=== PATIENT | male | born 1970 | race Caucasian/White ===

== ENCOUNTER 2018-05-08 10:30 | Inpatient (IN) | payer BC ==
[2018-05-08] MEDS ORDERED: traMADol 50 MG Tab PO SCH (10:45)
[2018-05-08] MEDS: B.Bifidum/B.Longum/L.Acidophilus/L.Rhamnosus (Probiotic) Cap PO SCH (12:02)
[2018-05-08] MEDS: Piperacillin/Tazobactam/Dext 3.375 GM in Premix Bag 1 BAG IV SCH ×2 (12:10→18:14)
[2018-05-08] MEDS: Sodium Chloride 0.9% 250 ML IV SCH (12:10)
[2018-05-08] MEDS ORDERED: traMADol 50 MG Tab PO PRN (12:46)
[2018-05-08 13:12] LABS: ANION GAP 15.1 mmol/L (5-15); CHLORIDE,CL 99 mmol/L (98-115); SODIUM,NA 136 mmol/L (136-145)
[2018-05-08] MEDS: Vancomycin 2 GM in Sodium Chloride 0.9% 500 ML IV SCH (13:33)
[2018-05-08] MEDS: amLODIPine 5 MG Tab PO SCH (21:24)
[2018-05-08] MEDS: Lisinopril 20 MG Tab PO SCH (21:26)
[2018-05-08] MEDS: atorvaSTATin 10 MG Tab PO SCH (21:26)
[2018-05-08] MEDS: Hydrochlorothiazide 12.5 MG Cap PO SCH (21:26)
[2018-05-09] MEDS: Piperacillin/Tazobactam/Dext 3.375 GM in Premix Bag 1 BAG IV SCH ×4 (00:18→18:48)
[2018-05-09] MEDS: Vancomycin 2 GM in Sodium Chloride 0.9% 500 ML IV SCH ×2 (01:19→14:29)
[2018-05-09] MEDS: B.Bifidum/B.Longum/L.Acidophilus/L.Rhamnosus (Probiotic) Cap PO SCH (08:30)
--- NOTE | 2018-05-09 12:15 | PN ---
05/09/2018 PATIENT NAME: CAITLIN DIAS HISTORY OF PRESENT ILLNESS: This 48-year-old gentleman was admitted to the hospital post clinical evaluation due to a left lower leg cellulitis/abscess. He had initially injured the left allen area approximately 2 months ago by banging the leg on a ladder as he was climbing. Initially, the leg became quite reddened and swollen with discomfort. He was evaluated in the clinical setting. The patient was placed on antibiotics. An ultrasound had been obtained and was negative for DVT. He completed therapy as ordered. He then noticed a swollen area on the anterior aspect of the lower leg approximately 3 weeks later. A hematoma was removed by Dr. Kasey Martinez. He did have a [place] drain placed. He was given IM Rocephin along with Bactrim DS twice daily for 10 days. Rocephin was x4 days. The status of the lower extremity did show improvement. As of yesterday, he noted after ambulating, the lower extremity became quite reddened, swollen, and tender. He was noting a pussy type discharge from the wound. As a result, he presented to the clinical setting and was hospitalized. Today, he reports that he has noted less drainage through the night. He feels that the swelling and the redness are showing some improvement with his treatment of IV antibiotics. He denies any significant pain. He did receive pain management medication x1 yesterday and has not required any further medication for the discomfort. REVIEW OF SYSTEMS: HEENT: Negative. RESPIRATORY: The patient denies any cough, congestion, or shortness of breath. CARDIOVASCULAR: No complaints of chest discomfort or palpitations. GI: His appetite has been good without any nausea or vomiting. MUSCULOSKELETAL: Left lower extremity abscess/cellulitis with initial discomfort, drainage, redness, and swelling. SKIN: No complaints of rashes or moles. PHYSICAL EXAMINATION: VITAL SIGNS: Stable, 96/60, 97.8, 53, and 20, O2 saturation is 98%. HEENT: Head is normocephalic, conjunctivae clear, no nasal drainage. RESPIRATORY: Lung sounds are clear to auscultation. CARDIOVASCULAR: Heart rate and rhythm are regular. S1 and S2. ABDOMEN: Soft, nontender, bowel sounds present. EXTREMITIES: Left lower extremity is warm and dry to touch. It is swollen on the left anterior allen area. There is a central open wound approximately 1.5 cm in diameter. There is only a scant amount of drainage present on the dressing and with expression to the wound site. IMPRESSION AND PLAN: Abscess/cellulitis of the left lower extremity. A CBC was obtained noting no elevation in the white count. A Gram stain has been completed and is negative. Wound cultures are pending. The patient will be continued on his vancomycin q.12 hours and his Zosyn q.6 hours. A vancomycin trough will be obtained tomorrow. He does have an order for tramadol 50 mg q.6 hours for pain and discomfort as needed. Remainder of his medications and chronic diagnoses include hypertension, for which he received Norvasc 5 mg daily, hydrochlorothiazide 12.5 mg, and lisinopril 40 mg. He also has a history of hypercholesterolemia and is taking Lipitor 20 mg. Dressing changes will be completed on a daily basis. The patient will continue with his medications as stated and be followed up tomorrow. /[id number]/MODL MTDD
[2018-05-09] MEDS: Sodium Chloride 0.9% 250 ML IV SCH (12:29)
[2018-05-09] MEDS: Lisinopril 20 MG Tab PO SCH (20:45)
[2018-05-09] MEDS: amLODIPine 5 MG Tab PO SCH (20:45)
[2018-05-09] MEDS: atorvaSTATin 10 MG Tab PO SCH (20:45)
[2018-05-09] MEDS: Hydrochlorothiazide 12.5 MG Cap PO SCH (20:45)
[2018-05-10] MEDS: Piperacillin/Tazobactam/Dext 3.375 GM in Premix Bag 1 BAG IV SCH ×5 (00:10→23:56)
[2018-05-10] MEDS: Vancomycin 2 GM in Sodium Chloride 0.9% 500 ML IV SCH ×2 (00:58→17:30)
[2018-05-10] MEDS: B.Bifidum/B.Longum/L.Acidophilus/L.Rhamnosus (Probiotic) Cap PO SCH (08:26)
[2018-05-10] MEDS: Sodium Chloride 0.9% 250 ML IV SCH (12:22)
--- NOTE | 2018-05-10 19:15 | PN ---
05/10/2018 PATIENT NAME: CAITLIN DIAS HISTORY OF PRESENT ILLNESS: This is a 48-year-old male patient who was admitted to the [facility] post clinical evaluation due to left lower leg cellulitis/abscess. Initial injury had occurred approximately 2 months prior to his current abscess site. Currently, he noted that there was redness and discomfort along with swelling on the anterior aspect of the allen. This site was drained and a culture was obtained. No growth of the preliminary culture report to date. He has been receiving IV antibiotics of Zosyn and vancomycin. The patient states today he feels that the discomfort has significantly improved. There is less redness and less swelling. He notes there is minimal drainage at this site. He has not taken any further pain medications. He is eating well and he is resting comfortably. REVIEW OF SYSTEMS: HEENT: Negative. RESPIRATORY: No cough, congestion, or shortness of breath. CARDIOVASCULAR: No complaints of chest discomfort or palpitations. GASTROINTESTINAL: Appetite has been good. He has had no nausea or vomiting. MUSCULOSKELETAL: Left lower extremity abscess/cellulitis with initial discomfort, drainage, redness, and swelling. Significant improvement over the past 24 hours. SKIN: No complaints of rashes, sores, or moles. PHYSICAL EXAMINATION: VITAL SIGNS: Stable. HEENT: Head is normocephalic. No nasal drainage. Conjunctivae are clear. RESPIRATORY: Lung sounds are clear to auscultation. CARDIOVASCULAR: Heart rate and rhythm are regular. S1, S2. ABDOMEN: Soft, nontender, with auscultation of bowel sounds. EXTREMITIES: Left lower extremity is warm. It is dry presently. There is fading redness. minimal swelling. The open area at the center is approximately 1.5 cm in circumference. No active drainage. IMPRESSION AND PLAN: Abscess/cellulitis of the left lower extremity. We will continue with the vancomycin and the Zosyn. A vancomycin peak and trough will be obtained today for evaluation. The preliminary report of the cultures indicates no growth. If the patient continues positive response, consideration for discharge tomorrow. /[id number]/MODL MTDD
[2018-05-10] MEDS: amLODIPine 5 MG Tab PO SCH (20:27)
[2018-05-10] MEDS: Lisinopril 20 MG Tab PO SCH (20:27)
[2018-05-10] MEDS: Hydrochlorothiazide 12.5 MG Cap PO SCH (20:27)
[2018-05-10] MEDS: atorvaSTATin 10 MG Tab PO SCH (20:28)
[2018-05-10] MEDS ORDERED: Piperacillin/Tazobactam/Dext 3.375 GM in Premix Bag 1 BAG IV SCH (21:00)
[2018-05-11] MEDS: Piperacillin/Tazobactam/Dext 3.375 GM in Premix Bag 1 BAG IV SCH ×3 (04:25→15:10)
[2018-05-11] MEDS ORDERED: VANCOMYCIN IV SCH (06:00)
[2018-05-11] MEDS ORDERED: SODIUM CHLORIDE 0.9% IV SCH (06:00)
[2018-05-11] MEDS: Sodium Chloride 0.9% 250 ML IV SCH (10:00)
[2018-05-11] MEDS: B.Bifidum/B.Longum/L.Acidophilus/L.Rhamnosus (Probiotic) Cap PO SCH (10:18)
--- NOTE | 2018-05-12 03:47 | DISCH ---
FINAL DIAGNOSES: Abscess and cellulitis in the left lower extremity. HISTORY: This 48-year-old gentleman was admitted to the [facility] by Vlad Ramirez. He has post clinical evaluation due to left lower leg cellulitis and abscess. His initial injury had occurred approximately two months ago prior to his current abscess site. He had been seen and evaluated by Vlad Ramirez with significant redness, copious amount on discharge with noticeable significant tunneling along with discomfort and swelling of the anterior aspect of the allen. The site was drained and culture was obtained. No growth on preliminary cultures reported to date. He was admitted for extremity rest, elevation, and antibiotics. At one point, Dr. Kasey Martinez had placed a [place] drain in. HOSPITAL COURSE: The patient's hospital course went well. He was started on broad-spectrum Zosyn along with vancomycin. He has had significant improvement in both swelling, redness and induration with much less drainage. Vital signs have been stable. The patient has been afebrile. Microbiology; no growth on blood cultures. Preliminary Gram stain demonstrated no growth to date. No PMNs, no organism seen. Inspecting the wound, left lower extremity is warm, slight drainage, definitely fading redness and receding redness, much wrinkling, minimal swelling. The open area at the center is approximately 1.4 cm in circumference. He has had good distal sensation. Good distal pulses. No signs of DVT or palpable cord. MEDICATIONS UPON DISCHARGE: Keflex 500 mg q.8 hours x21 total doses. DISPOSITION: The patient will be discharged this evening after his vancomycin. He will return tomorrow, 05/12 and 05/13 for outpatient vancomycin and dressing changes. The patient can take his Keflex. Discontinue his Bactrim and rifampin. Increasing protein in his diet. Keep left leg extremity elevated. Not return to work until evaluated by Vlad. Compression dressing applied. Report fever, shortness of breath, increase in drainage. /[id number]/MODL
== END 2018-05-11 16:00 | disposition home or self-care (01) | DRG 383 ==
LOC: KA.MS 10:59
PROVIDERS: ADMIT Physician Assistant; ATTEND Family Medicine
DX: L02.416 Cutaneous abscess of left lower limb (principal); L03.116 Cellulitis of left lower limb; E78.2 Mixed hyperlipidemia; I10 Essential (primary) hypertension; Z79.899 Other long term (current) drug therapy
CPT/HCPCS: 36415; 80048; 80202; 85025; 87040; 87070; 87205; 90686; A9270-GY; G0008; J2543; J3370; J7040; J7050